=== PATIENT | female | born 1995 | race Caucasian/White ===

== ENCOUNTER 2016-04-11 12:53 | Inpatient (IN) | payer OTHER ==
--- NOTE | 2016-04-11 13:16 | ED ---
Psychiatric Complaint - HPI Summary HPI Summary: Patient presents for evaluation of suicidal thoughts. Patient has been slowly increasing her Escitalopram over the last 7 days, according to instructions from the [facility] provider. However, in the last few days has had clear suicidal thoughts. Started on Escitalopram last week due to depression, which is a recurrent issue; however, has never had thoughts or attempts at suicide. Called her counselor and was directed to the ED. Denies any coingestants, abd or chest pain, dyspnea, systemic symptoms. No specific aggrav factors. - History Of Current Complaint Chief Complaint: EDMentalHealth Time Seen by Provider: 04/11/16 13:04 Hx Obtained From: Patient Onset/Duration: Gradual Onset, Lasting Days Timing: Constant Severity Initially: Moderate Severity Currently: Moderate Character: Depressed Aggravating Factor(s): Nothing Alleviating Factor(s): Medication Associated Signs And Symptoms: Negative: Hostile, Confused, Hallucinating, Paranoid Behavior, Sleep Disturbance, Appetite Change, Social Withdrawal, Social Isolation Related History: Positive For: Prior Psychiatric Issues Has Suicidal: Reports: Thoughts. Denies: Demonstrates Gesture, Has Prior Attempt(s) Has Homicidal: Denies: Thoughts, With A Plan, Demonstrates Gesture, Has Prior Attempt(s) Recent Stressor(s): None - Risk Factor(s) Completed Suicide Risk Factors: Negative - Allergies/Home Medications Home Medications: Home Medications Lexapro 5 mg PO DAILY 04/11/16 [History Confirmed 04/11/16] PMH/Surg Hx/FS Hx/Imm Hx Previously Healthy: Yes Review of Systems Constitutional: Negative Negative: Fever, Chills Eyes: Negative ENT: Negative Cardiovascular: Negative Negative: Palpitations, Chest Pain Respiratory: Negative Negative: Shortness Of Breath, Cough Gastrointestinal: Negative Negative: Abdominal Pain, Vomiting Genitourinary: Negative Musculoskeletal: Negative Neurological: Negative Negative: Headache, Weakness, Paresthesia, Numbness, Syncope, Slurred Speech Positive: Depressed All Other Systems Reviewed And Are Negative: Yes Physical Exam Triage Information Reviewed: Yes Vital Signs Reviewed: Yes Appearance: Positive: Well-Appearing, No Pain Distress, Well-Nourished Skin: Positive: Warm, Skin Color Reflects Adequate Perfusion, Dry Head/Face: Positive: Normal Head/Face Inspection Eyes: Positive: Normal, EOMI, MARIE ENT: Positive: Normal ENT inspection Neck: Positive: Supple, Nontender, No Lymphadenopathy, Other: - No thyromegaly. Negative: Enlarged Nodes @ Respiratory/Lung Sounds: Positive: Clear to Auscultation, Breath Sounds Present Cardiovascular: Positive: Normal, RRR, Pulses are Symmetrical in both Upper and Lower Extremities Abdomen Description: Positive: Nontender, No Organomegaly, Soft Musculoskeletal: Positive: Normal, Strength/ROM Intact Neurological: Positive: Normal, Sensory/Motor Intact, Alert, Oriented to Person Place, Time, CN Intact II-III. Negative: Cerebellar Dysfunction, Slurred Speech , Ataxic Gait Psychiatric: Positive: Anxious, Depressed Diagnostics - Laboratory Lab Statement: Any lab studies that have been ordered have been reviewed, and results considered in the medical decision making process. - EKG No standard instances EKG Rhythm: Sinus Rhythm ST Segment: Normal Ectopy: None Course/Dx - Differential Dx/Clinical Impression Differential Diagnosis/HQI/PQRI: Positive: Anxiety, Depression, Suicidal Ideation, Other - Unclear if this is medication induced suicidal thoughts, but no previous attempts or plan. Only during the new medication, has she had vivid thoughts of suicide without inciting factors. No signs of previous physical attempts and she denies previous ingestions. Has been previously in therapy during Undergraduate studies. Provider Diagnosis: Suicidal ideations - Physician Notifications Discussed Care Of Patient With: 14:48p Linn Alonso about the case. I told her that she needs admission for psychiatric stabilization due to the vivid and unprovoked suicidal thoughts. She agreed. 14:59p Discussed the case with Dr. Noel about the patient needing admission for psychiatric stabilization due to new onset suicidal thoughts without inciting cause other than new medication. She is medically cleared and unlikely to be an occult hyperthyroid cause. Linn Alonso has already seen the patient and agrees with my plan. If the psychiatrist feels patient can be discharged, she would need to have a safe environment and support system, as well as urgent psychiatry follow up. Discharge - Discharge Plan Condition: Good [place] [place]
[2016-04-11 14:06] LABS: Urine Bacteria 1+ (Absent); Urine Bilirubin Negative (Negative); Urine Glucose Negative (Negative); Urine Nitrite Negative (Negative)
[2016-04-11 14:26] LABS: Acetaminophen < 15 mcg/mL; Salicylate < 2.50 mg/dL (<30)
[2016-04-11 15:04] LABS: Hematocrit 43 % (35-47); Hemoglobin 14.2 g/dl (12.0-16.0); Mean Corpuscular HGB Conc 33 g/dl (31-36); Mean Corpuscular Hemoglobin 31 pg (27-31); Mean Corpuscular Volume 94 fL (80-97); Mean Platelet Volume 8 um3 (7.4-10.4); Red Blood Count 4.56 10^6/ul (4.0-5.4); Red Cell Distribution Width 14 % (10.5-15); White Blood Count 8.8 10^3/ul (3.5-10.8)
[2016-04-11 15:22] LABS: Anion Gap 5 mmol/L (2-11); BUN/Creatinine Ratio 17.1 (8-20); Blood Urea Nitrogen 12 mg/dL (6-24); CO2 Carbon Dioxide 26 mmol/L (22-32); Calcium 9.1 mg/dL (8.6-10.3); Chloride 104 mmol/L (101-111); EGFR African American 134.6 (>60); EGFR Non-African American 104.6 (>60); Glucose 85 mg/dL (70-100); Potassium 3.8 mmol/L (3.5-5.0); Sodium 135 mmol/L (133-145)
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
[2016-04-14 08:34] VITALS: BP 117/66
--- NOTE | 2016-04-14 11:43 | PN ---
MHU: Group Therapy Note - Service Type Service Type: 55091 Group Psychotherapy - Cognitive Behavioral Group Therapy ( CBT):Patient was attentive and participatory in CBT programming this morning, and remained in good behavioral control. Patient expressed positive insights regarding relevant treatment interventions and goals.
--- NOTE | 2016-04-14 13:25 | DS ---
DATE OF ADMISSION: 04/11/2016. DATE OF DISCHARGE: 04/14/2016. DISCHARGE DIAGNOSES: AXIS I: Adjustment disorder with depressed mood; bulimia nervosa by history. AXIS II: Deferred. AXIS III: None. AXIS IV: Moderate primary support stressors. AXIS V: At the time of admission was 43 and at the time of discharge is 60. CONDITION AT THE TIME OF DISCHARGE: Stable. The patient is calm and cooperative. She is denying an y suicidal or homicidal ideations. She is future oriented, stating that she has a research project that she is going to be working on this week at school and she is agreeable with outpatient follow-u p with her therapist in the community. The acute stressor of this hospitalization was that she had treatment emergent suicidal ideations from an initiation of treatment with Escitalopram. The Escita lopram has since been discontinued and since its discontinuation, she has not had any further though ts of self-harm. MENTAL STATUS EXAM: The patient is a young, white female with brown hair. She is clean and well-gr oomed with excellent eye contact and good posture. There is no sign of movement abnormalities. Spe ech has a normal rate, tone and volume. Her mood is euthymic with a full affect. Thought process i s linear and goal-directed. Thought content is significant for her desire to leave the hospital. Sh e is denying suicidal or homicidal ideations. She denies auditory of visual hallucinations. Insigh t and judgment appears to be fair given her willingness to follow-up with outpatient treatment. Cog nitively, she is awake and alert with what appears to be an average intellect. DISCHARGE INSTRUCTIONS TO THE PATIENT: A. Medications: She is not on any current medications. B. Diet: Regular. C. Activities: As tolerated. The patient is a nonsmoker. D. Follow-up care: The patient will be following up within the next three days with her outpatient therapist, whose name is Brittaney Damon. HOSPITAL COURSE - PART A: Reason for admission: The patient is a 20-year-old, single, white female with a history of depression and eating disorder problems who was brought to the emergency room by [facility] after endorsing suicidal ideations [facility]. Claudia arently, the patient had recently gotten into treatment at the [facility] through [facility] [place] and she actually started an antidepressant which was Escitalopram 5 mg p.o. daily, started one week prior to presentation. She felt fine at first, but then started noticing that she was having profound visions of either hanging herself or cutting her wrists. She was alarmed enough to call the [facility] where she got an emergency appointment. There she continu ed to endorse these thoughts, however with no intention. They felt that it would be safest to send her to the hospital and she was upset about this given the fact that she was frisked by security and walked out by EMT's in front of several peers who were in the waiting area. At our emergency room, she denied suicidal ideation, stating that she was quite certain that her suicidality was due to th e medication and now that she has discontinued it, she feels better. On the morning of this evaluat ion, she continued to assert the same sentiment. I did speak with her father, who had communicated with her via phone from his home in [place]. He indicated that the patient had broken up with her boyfriend of the past [id number]-half years and that she did, in fact, have a history of suicidal tho ughts, although no significant attempts in the past. He neither thought that she would benefit for admission, nor did he state that we should discharge her. Ultimately, the treatment team felt that she would be best suited by being admitting given the lack of availability of follow-up services ove r the weekend at [place]. When I screened her at the time of admission for neurovegetative symptoms of depression, she mostly denied everything. When I asked her about the recent break-up with her b oyfriend, she stated that this was actually something that had lifted her mood. Her boyfriend appar ently lives in [place], [place] and the two of them have become estranged and the patient felt that the break-up was for the best. HOSPITAL COURSE - PART B: Psychiatric treatment rendered: The patient was admitted to the [facility] where she was placed on q.30 minute checks for her own safety. We continued the washout of her Escitalopram, and throughout the weekend that she was under our care, she continued t o steadfastly deny suicidal ideations. Ultimately, she opted not to follow-up with [facility] and states that she is not interested in antidepressant therapy at this time. She is wanting to return to [facility] with her past private psychotherapist in the community, a woman named Brittaney Damon on [facility]. This appointment was set by the social work staff and we feel that the patient is brian dy for discharge. Her father has been contacted again and is in agreement with the discharge plan. [id number]/[facility] #: [id number]
--- NOTE | 2016-05-26 07:11 | ED ---
I, Willi Hernandez, scribed for Pasquale Noel MD on 04/11/16 at 1814 . Progress - Progress Note Progress Note: This is a sign out from Dr. Ken who will be voluntarily admitted to psych. She consulted with mental health with no complications. - Consult/PCP Time Called: 14:48 Course/Dx - Provider Notifications Discussed Care Of Patient With: 14:48p Linnhernandez Alonso about the case. I told her that she needs admission for psychiatric stabilization due to the vivid and unprovoked suicidal thoughts. She agreed. 14:59p Discussed the case with Dr. Noel about the patient needing admission for psychiatric stabilization due to new onset suicidal thoughts without inciting cause other than new medication. She is medically cleared and unlikely to be an occult hyperthyroid cause. Linn Alonso has already seen the patient and agrees with my plan. If the psychiatrist feels patient can be discharged, she would need to have a safe environment and support system, as well as urgent psychiatry follow up. - Diagnoses Provider Diagnoses: Suicidal ideations The documentation as recorded by the David plummer Aidan accurately reflects the service I personally performed and the decisions made by me, Pasquale Noel MD.
== END 2016-04-14 14:30 | disposition home or self-care (01) | DRG 881 ==
LOC: ED 12:53 → BSU 16:15
PROVIDERS: ADMIT Psychiatry & Neurology Psychiatry; ATTEND Psychiatry & Neurology Psychiatry
PROC: GZHZZZZ Group Psychotherapy (ICD-10-PCS; principal; 2016-04-14)
DX: F43.21 Adjustment disorder with depressed mood (principal); F50.2 Bulimia nervosa; F32.9 Major depressive disorder, single episode, unspecified; Z72.89 Other problems related to lifestyle; Z81.8 Family history of other mental and behavioral disorders
CPT/HCPCS: 36415; 80048; 80329; 81003; 81015; 85027; 87086; 90853; 93005; 99222; 99238; G0480

== ENCOUNTER 2018-11-22 07:59 | Day surgery (SDC) | payer OTHER, BC ==
[~2018-11-22 07:59] MED LIST: Buffered Lidocaine 1% SYRIN* 1 ML/SYRINGE INTRADERM ONE; Dexamethasone IV* 4 MG/ML 1 ML (4 MG) IV SLOW PU ONE; Famotidine IV* 10 MG/ML 2 ML (20 mg) IV ONE; Lactated Ringers 1000 ML Bag* 1,000 ML IV SCH
[2018-11-22] MEDS ORDERED: Famotidine IV* 10 MG/ML 2 ML (20 mg) ONE (08:08)
[2018-11-22] MEDS ORDERED: ceFAZolin 2 GM in NS PREMIX(*) 2 GM/100 ML BAG IVPB ONE (08:08)
[2018-11-22] MEDS ORDERED: Dexamethasone IV* 4 MG/ML 1 ML (4 MG) ONE (08:08)
[2018-11-22] MEDS ORDERED: diPHENhydraMINE IV* 50 MG/ML 1 ml VIAL (BENADRYL) IV PRN (09:32)
[2018-11-22] MEDS ORDERED: fentaNYL* 50 MCG/ML 2 ML VIAL (100 MCG VIAL) IV PRN ×2 (09:32→10:27)
[2018-11-22] MEDS ORDERED: Propofol* 10 MG/ML 20 ML BTL ONE (09:48)
[2018-11-22] MEDS ORDERED: fentaNYL* 50 MCG/ML 2 ML VIAL (100 MCG VIAL) ONE (09:48)
[2018-11-22] MEDS ORDERED: Lidocaine 2% PF * 5 ML VIAL ONE (09:48)
[2018-11-22] MEDS ORDERED: Ropivacaine 0.2% * 2 MG/ML VIAL ONE (10:20)
[2018-11-22] MEDS ORDERED: Lidocaine 1% w EPI 1:200,000* SDV 30 ML VIAL ONE (10:20)
[2018-11-22] MEDS ORDERED: Ondansetron INJ* 2 MG/ML VIAL ONE (10:24)
[2018-11-22] MEDS ORDERED: Naloxone* 0.4 MG/ML 1 ML VIAL IV PRN (10:27)
[2018-11-22] MEDS ORDERED: Ketorolac INJ* 30 MG/ML 1 ML VIAL IV PRN (10:27)
[2018-11-22] MEDS ORDERED: DiMENhydriNATE IV* 50 MG/ML VIAL IV PUSH PRN (10:27)
[2018-11-22 11:54] VITALS: BP 114/94
--- NOTE | 2018-11-22 21:52 | OP ---
CC: PCP, [facility] * DATE OF OPERATION: 11/22/18 [facility] DATE OF : 89 SURGEON: Renu Otto MD ADMISSIONS EVALUATOR: HUMBERTO Gillespie. An [employer] assistant manager was needed for the entirety of the case to help with positioning, retraction, and was utilized throughout all portions of the case. ANESTHESIOLOGIST: Dr. Watkins. ANESTHESIA: General. PRE-OP DIAGNOSIS: Left knee painful retained hardware. POST-OP DIAGNOSIS: Left knee painful retained hardware. OPERATIVE PROCEDURE: Left knee open removal of hardware, 2 screws. COMPLICATIONS: None. ESTIMATED BLOOD LOSS: Minimal. INDICATIONS: Caitlyn Farias is a 22-year-old female who has had persistent subluxation and dislocation of the knee cap, who underwent a patella realignment arthroscopy about a year ago. She had completely healed her osteotomy and had some pain where the screw heads were. We talked about removal of hardware. She elected to proceed. Risks and benefits were discussed in length included, but are not limited to bleeding; infection; damage to nerves, vessels, surrounding structures; wound nonhealing; persistent pain; need for further surgery; scarring; stiffness; incomplete relief of symptoms; risks of anesthesia. DESCRIPTION OF PROCEDURE: The patient was greeted in the preoperative area by the attending surgeon. Correct extremity was marked and consent was confirmed. The was brought back to the operating suite where she was placed in supine position on the operating table, underwent general anesthesia and endotracheal intubation, after which she was appropriately positioned in the bed. The left knee and leg were prepped and draped in usual sterile fashion beginning with chlorhexidine soap, scrub, and alcohol wipe, and a final prep with ChloraPrep. After appropriate surgical pause indicating side, site, procedure, and administration of antibiotics, the previously made incision was incised with a 15 blade. Soft tissues were carefully dissected to expose the hardware. Both screws were readily identified and had scar tissue over it. These were then removed in their entirety, but no evidence of breaking the screw site. Screw holes were then debrided back using a curette and then the wounds were copiously irrigated with sterile saline. The incision was closed in layers with 3-0 Monocryl and 3-0 nylon. Sterile dressings were applied. Knee was superficially injected with 0.2% ropivacaine for pain control. Sterile dressings were applied. She was awoken from anesthesia, transferred to the PACU in stable condition. An x-ray was done after the dressing was put on to confirm that there was no retained hardware and no fracture. POSTOPERATIVE PLAN: She will be weightbearing as tolerated. Range of motion as tolerated. Discharged on pain medications and antibiotics. DVT prophylaxis was considered, but deferred due to no previous personal or family history. I will see the patient back in 10 to 14 days. [id number]/[facility] #: [id number] DUY
== END 2018-11-22 11:53 | disposition home or self-care (01) ==
LOC: OREAST 07:59
PROVIDERS: ATTEND Orthopaedic Surgery
DX: T84.84XA Pain due to internal orthopedic prosthetic devices, implants and grafts, initial encounter (principal); Y83.1 Surgical operation with implant of artificial internal device as the cause of abnormal reaction of the patient, or of later complication, without mention of misadventure at the time of the procedure; M23.8X2 Other internal derangements of left knee; F32.9 Major depressive disorder, single episode, unspecified
CPT/HCPCS: 76000; 81025; 88300; J0690; J1100; J2001; J2405; J2704; J2795; J3010